=== PATIENT | male | born 1960 | race Caucasian/White ===

== ENCOUNTER → 2020-07-11 | Outpatient (CLI) | payer BC, OTHER ==
[~2020-07-11] MED LIST: ASPIRIN EC81 M1 PO; ASPIRIN325 PO; EFFIENT10 MG PO; FISH OIL 1,0001 EAC5 PO; LIPITOR20 MG PO; LISINOPRIL10 MG PO; NITROGLYCERIN0.4 MG SL; TOPROL XL25 MG PO
== END ==
LOC: SJCVCIMAG 09:15
PROVIDERS: ATTEND Internal Medicine
DX: R00.0 Tachycardia, unspecified (principal); I25.10 Atherosclerotic heart disease of native coronary artery without angina pectoris; I10 Essential (primary) hypertension; E78.5 Hyperlipidemia, unspecified; I51.0 Cardiac septal defect, acquired; Z98.61 Coronary angioplasty status